=== PATIENT | female | born 1975 | race African-American/Black ===

== ENCOUNTER 2023-09-12 10:54 | Outpatient (CLI) | payer OTHER | END 2023-09-12 10:55 | disposition home or self-care (01) | LOC: CSHWCC 10:54 | PROVIDERS: ATTEND Nurse Practitioner Family | DX: T81.32XD Disruption of internal operation (surgical) wound, not elsewhere classified, subsequent encounter (principal); E11.621 Type 2 diabetes mellitus with foot ulcer; L97.524 Non-pressure chronic ulcer of other part of left foot with necrosis of bone; M86.172 Other acute osteomyelitis, left ankle and foot; N18.6 End stage renal disease; I50.22 Chronic systolic (congestive) heart failure | CPT/HCPCS: 99211; G0463 ==

== ENCOUNTER 2023-09-16 12:49 | Outpatient (CLI) | payer OTHER | END 2023-09-16 12:50 | disposition home or self-care (01) | LOC: CSHWCC 12:49 | PROVIDERS: ATTEND Nurse Practitioner Family | DX: T81.32XD Disruption of internal operation (surgical) wound, not elsewhere classified, subsequent encounter (principal); E11.621 Type 2 diabetes mellitus with foot ulcer; L97.524 Non-pressure chronic ulcer of other part of left foot with necrosis of bone; E11.22 Type 2 diabetes mellitus with diabetic chronic kidney disease; N18.6 End stage renal disease; I50.22 Chronic systolic (congestive) heart failure; M86.172 Other acute osteomyelitis, left ankle and foot | CPT/HCPCS: 11042; 11045 ==

== ENCOUNTER 2023-09-23 15:12 | Outpatient (CLI) | payer OTHER | END 2023-09-23 15:13 | disposition home or self-care (01) | LOC: CSHWCC 15:12 | PROVIDERS: ATTEND Nurse Practitioner Family | DX: T81.32XD Disruption of internal operation (surgical) wound, not elsewhere classified, subsequent encounter (principal); E11.621 Type 2 diabetes mellitus with foot ulcer; L97.524 Non-pressure chronic ulcer of other part of left foot with necrosis of bone; M86.172 Other acute osteomyelitis, left ankle and foot; I50.22 Chronic systolic (congestive) heart failure; E11.22 Type 2 diabetes mellitus with diabetic chronic kidney disease; N18.6 End stage renal disease | CPT/HCPCS: 11042; 11045 ==

== ENCOUNTER 2023-09-26 10:45 | Outpatient (CLI) | payer OTHER | END 2023-09-26 10:46 | disposition home or self-care (01) | LOC: CSHWCC 10:45 | PROVIDERS: ATTEND Nurse Practitioner Family | DX: E11.621 Type 2 diabetes mellitus with foot ulcer (principal); L97.524 Non-pressure chronic ulcer of other part of left foot with necrosis of bone; T81.32XD Disruption of internal operation (surgical) wound, not elsewhere classified, subsequent encounter; M86.172 Other acute osteomyelitis, left ankle and foot; I50.22 Chronic systolic (congestive) heart failure; N18.6 End stage renal disease | CPT/HCPCS: 99211; G0463 ==

== ENCOUNTER 2023-10-07 15:05 | Outpatient (CLI) | payer OTHER | END 2023-10-07 15:06 | disposition home or self-care (01) | LOC: CSHWCC 15:05 | PROVIDERS: ATTEND Nurse Practitioner Family | DX: E11.621 Type 2 diabetes mellitus with foot ulcer (principal); L97.524 Non-pressure chronic ulcer of other part of left foot with necrosis of bone; T81.32XD Disruption of internal operation (surgical) wound, not elsewhere classified, subsequent encounter; M86.172 Other acute osteomyelitis, left ankle and foot; N18.6 End stage renal disease; I50.22 Chronic systolic (congestive) heart failure | CPT/HCPCS: 11042; 11045 ==

== ENCOUNTER 2023-10-10 09:22 | Outpatient (CLI) | payer OTHER | END 2023-10-10 09:23 | disposition home or self-care (01) | LOC: CSHWCC 09:22 | PROVIDERS: ATTEND Nurse Practitioner Family | DX: T81.32XD Disruption of internal operation (surgical) wound, not elsewhere classified, subsequent encounter (principal); E11.621 Type 2 diabetes mellitus with foot ulcer; L97.524 Non-pressure chronic ulcer of other part of left foot with necrosis of bone; M86.172 Other acute osteomyelitis, left ankle and foot; I50.22 Chronic systolic (congestive) heart failure; E11.22 Type 2 diabetes mellitus with diabetic chronic kidney disease; N18.6 End stage renal disease | CPT/HCPCS: 29581 ==

== ENCOUNTER 2023-10-14 15:19 | Outpatient (CLI) | payer OTHER | END 2023-10-14 15:20 | disposition home or self-care (01) | LOC: CSHWCC 15:19 | PROVIDERS: ATTEND Nurse Practitioner Family | DX: T81.32XD Disruption of internal operation (surgical) wound, not elsewhere classified, subsequent encounter (principal); E11.621 Type 2 diabetes mellitus with foot ulcer; L97.524 Non-pressure chronic ulcer of other part of left foot with necrosis of bone; E11.22 Type 2 diabetes mellitus with diabetic chronic kidney disease; N18.6 End stage renal disease; M86.172 Other acute osteomyelitis, left ankle and foot; I50.22 Chronic systolic (congestive) heart failure | CPT/HCPCS: 11042; 11045 ==

== ENCOUNTER 2023-10-17 13:27 | Outpatient (CLI) | payer OTHER | END 2023-10-17 13:28 | disposition home or self-care (01) | LOC: CSHWCC 13:27 | PROVIDERS: ATTEND Nurse Practitioner Family | DX: T81.32XD Disruption of internal operation (surgical) wound, not elsewhere classified, subsequent encounter (principal); E11.621 Type 2 diabetes mellitus with foot ulcer; L97.524 Non-pressure chronic ulcer of other part of left foot with necrosis of bone; M86.172 Other acute osteomyelitis, left ankle and foot; I50.22 Chronic systolic (congestive) heart failure; N18.6 End stage renal disease | CPT/HCPCS: 29581 ==

== ENCOUNTER 2023-10-21 15:33 | Outpatient (CLI) | payer OTHER | END 2023-10-21 15:34 | disposition home or self-care (01) | LOC: CSHWCC 15:33 | PROVIDERS: ATTEND Nurse Practitioner Family | DX: T81.32XD Disruption of internal operation (surgical) wound, not elsewhere classified, subsequent encounter (principal); E11.621 Type 2 diabetes mellitus with foot ulcer; L97.524 Non-pressure chronic ulcer of other part of left foot with necrosis of bone; E11.22 Type 2 diabetes mellitus with diabetic chronic kidney disease; N18.6 End stage renal disease; M86.172 Other acute osteomyelitis, left ankle and foot; I50.22 Chronic systolic (congestive) heart failure | CPT/HCPCS: 99211; G0463 ==

== ENCOUNTER 2023-10-24 08:43 | Outpatient (CLI) | payer OTHER | END 2023-10-24 08:44 | disposition home or self-care (01) | LOC: CSHWCC 08:43 | PROVIDERS: ATTEND Preventive Medicine Undersea and Hyperbaric Medicine | DX: T81.32XD Disruption of internal operation (surgical) wound, not elsewhere classified, subsequent encounter (principal); E11.621 Type 2 diabetes mellitus with foot ulcer; L97.524 Non-pressure chronic ulcer of other part of left foot with necrosis of bone; E11.22 Type 2 diabetes mellitus with diabetic chronic kidney disease; N18.6 End stage renal disease; M86.172 Other acute osteomyelitis, left ankle and foot; I50.22 Chronic systolic (congestive) heart failure | CPT/HCPCS: 11042; 11045 ==

== ENCOUNTER 2023-10-28 14:41 | Outpatient (CLI) | payer OTHER | END 2023-10-28 14:42 | disposition home or self-care (01) | LOC: CSHWCC 14:41 | PROVIDERS: ATTEND Preventive Medicine Undersea and Hyperbaric Medicine | DX: E11.621 Type 2 diabetes mellitus with foot ulcer (principal); L97.524 Non-pressure chronic ulcer of other part of left foot with necrosis of bone; T81.32XD Disruption of internal operation (surgical) wound, not elsewhere classified, subsequent encounter; M86.172 Other acute osteomyelitis, left ankle and foot; N18.6 End stage renal disease; I50.22 Chronic systolic (congestive) heart failure | CPT/HCPCS: 29581 ==

== ENCOUNTER 2023-10-31 08:47 | Outpatient (CLI) | payer OTHER | END 2023-10-31 08:48 | disposition home or self-care (01) | LOC: CSHWCC 08:47 | PROVIDERS: ATTEND Nurse Practitioner Family | DX: T81.32XD Disruption of internal operation (surgical) wound, not elsewhere classified, subsequent encounter (principal); E11.621 Type 2 diabetes mellitus with foot ulcer; L97.524 Non-pressure chronic ulcer of other part of left foot with necrosis of bone; M86.172 Other acute osteomyelitis, left ankle and foot; I50.22 Chronic systolic (congestive) heart failure; E11.22 Type 2 diabetes mellitus with diabetic chronic kidney disease; N18.6 End stage renal disease | CPT/HCPCS: 11042; 11045 ==

== ENCOUNTER 2023-11-14 09:38 | Outpatient (CLI) | payer OTHER | END 2023-11-14 09:39 | disposition home or self-care (01) | LOC: CSHWCC 09:38 | PROVIDERS: ATTEND Nurse Practitioner Family | DX: T81.32XD Disruption of internal operation (surgical) wound, not elsewhere classified, subsequent encounter (principal); E11.621 Type 2 diabetes mellitus with foot ulcer; L97.524 Non-pressure chronic ulcer of other part of left foot with necrosis of bone; M86.172 Other acute osteomyelitis, left ankle and foot; I50.22 Chronic systolic (congestive) heart failure; N18.6 End stage renal disease | CPT/HCPCS: 29581 ==

== ENCOUNTER 2023-11-27 08:57 | Outpatient (CLI) | payer OTHER | END 2023-11-27 08:58 | disposition home or self-care (01) | LOC: CSHWCC 08:57 | PROVIDERS: ATTEND Nurse Practitioner Family | DX: T81.32XD Disruption of internal operation (surgical) wound, not elsewhere classified, subsequent encounter (principal); E11.621 Type 2 diabetes mellitus with foot ulcer; L97.522 Non-pressure chronic ulcer of other part of left foot with fat layer exposed; I50.22 Chronic systolic (congestive) heart failure; E11.22 Type 2 diabetes mellitus with diabetic chronic kidney disease; N18.6 End stage renal disease | CPT/HCPCS: 11042 ==

== ENCOUNTER 2023-12-25 09:06 | Outpatient (CLI) | payer OTHER | END 2023-12-25 09:07 | disposition home or self-care (01) | LOC: CSHWCC 09:06 | PROVIDERS: ATTEND Nurse Practitioner Family | DX: E11.621 Type 2 diabetes mellitus with foot ulcer (principal); L97.522 Non-pressure chronic ulcer of other part of left foot with fat layer exposed; T81.32XD Disruption of internal operation (surgical) wound, not elsewhere classified, subsequent encounter; N18.6 End stage renal disease; I50.22 Chronic systolic (congestive) heart failure | CPT/HCPCS: 11042 ==

== ENCOUNTER 2024-01-29 10:15 | Outpatient (CLI) | payer OTHER | END 2024-01-29 10:16 | disposition home or self-care (01) | LOC: CSHWCC 10:15 | PROVIDERS: ATTEND Nurse Practitioner Family | DX: T81.32XD Disruption of internal operation (surgical) wound, not elsewhere classified, subsequent encounter (principal); E11.621 Type 2 diabetes mellitus with foot ulcer; L97.522 Non-pressure chronic ulcer of other part of left foot with fat layer exposed; I50.22 Chronic systolic (congestive) heart failure; E11.22 Type 2 diabetes mellitus with diabetic chronic kidney disease; N18.6 End stage renal disease | CPT/HCPCS: 99212; G0463 ==

== ENCOUNTER 2024-02-12 10:40 | Outpatient (CLI) | payer OTHER | END 2024-02-12 10:41 | disposition home or self-care (01) | LOC: CSHWCC 10:40 | PROVIDERS: ATTEND Nurse Practitioner Family | DX: T81.329D Deep disruption or dehiscence of operation wound, unspecified, subsequent encounter (principal); E11.621 Type 2 diabetes mellitus with foot ulcer; L97.522 Non-pressure chronic ulcer of other part of left foot with fat layer exposed; I50.22 Chronic systolic (congestive) heart failure; E11.22 Type 2 diabetes mellitus with diabetic chronic kidney disease; N18.6 End stage renal disease | CPT/HCPCS: 11042 ==

== ENCOUNTER 2024-02-26 12:43 | Outpatient (CLI) | payer OTHER | END 2024-02-26 12:44 | disposition home or self-care (01) | LOC: CSHWCC 12:43 | PROVIDERS: ATTEND Nurse Practitioner Family | DX: T81.329D Deep disruption or dehiscence of operation wound, unspecified, subsequent encounter (principal); E11.621 Type 2 diabetes mellitus with foot ulcer; L97.522 Non-pressure chronic ulcer of other part of left foot with fat layer exposed; I50.22 Chronic systolic (congestive) heart failure; N18.6 End stage renal disease | CPT/HCPCS: 11042 ==

== ENCOUNTER 2024-03-04 11:16 | Outpatient (CLI) | payer OTHER | END 2024-03-04 11:17 | disposition home or self-care (01) | LOC: CSHWCC 11:16 | PROVIDERS: ATTEND Nurse Practitioner Family | DX: T81.329D Deep disruption or dehiscence of operation wound, unspecified, subsequent encounter (principal); E11.621 Type 2 diabetes mellitus with foot ulcer; L97.522 Non-pressure chronic ulcer of other part of left foot with fat layer exposed; I50.22 Chronic systolic (congestive) heart failure; N18.6 End stage renal disease ==

== ENCOUNTER 2024-03-11 08:44 | Outpatient (CLI) | payer OTHER | END 2024-03-11 08:45 | disposition home or self-care (01) | LOC: CSHWCC 08:44 | PROVIDERS: ATTEND Nurse Practitioner Family | DX: T81.329D Deep disruption or dehiscence of operation wound, unspecified, subsequent encounter (principal); E11.621 Type 2 diabetes mellitus with foot ulcer; L97.522 Non-pressure chronic ulcer of other part of left foot with fat layer exposed; E11.22 Type 2 diabetes mellitus with diabetic chronic kidney disease; N18.6 End stage renal disease; I50.22 Chronic systolic (congestive) heart failure | CPT/HCPCS: 97597 ==

== ENCOUNTER 2024-03-18 09:16 | Outpatient (CLI) | payer OTHER | END 2024-03-18 09:17 | disposition home or self-care (01) | LOC: CSHWCC 09:16 | PROVIDERS: ATTEND Nurse Practitioner Family | DX: T81.329D Deep disruption or dehiscence of operation wound, unspecified, subsequent encounter (principal); E11.621 Type 2 diabetes mellitus with foot ulcer; L97.522 Non-pressure chronic ulcer of other part of left foot with fat layer exposed; I50.22 Chronic systolic (congestive) heart failure; E11.22 Type 2 diabetes mellitus with diabetic chronic kidney disease; N18.6 End stage renal disease | CPT/HCPCS: 99212; G0463 ==

== ENCOUNTER 2024-04-02 09:58 | Outpatient (CLI) | payer OTHER | END 2024-04-02 09:59 | disposition home or self-care (01) | LOC: CSHWCC 09:58 | PROVIDERS: ATTEND Nurse Practitioner Family | DX: I50.22 Chronic systolic (congestive) heart failure (principal); N18.6 End stage renal disease; Z86.31 Personal history of diabetic foot ulcer | CPT/HCPCS: 99212; G0463 ==